=== PATIENT | female | born 1975 ===

== ENCOUNTER 2024-06-02 13:56 | Outpatient (AMB) | payer MEDICARE, MEDICAID, SELFPAY ==
--- OUTSIDE RECORDS SUMMARY | 2024-06-02 14:18 | XMS_ITS | Clinical Summary ---
Author Organization [employer] Address [address] [facility] [address] [place] [address] Care Team Providers Care Protection Engineer Name Role Phone Unavailable Primary Care Provider Unavailabl e Immunizations Name Administration Dates Next Due Pfizer Covid-19 Vaccine 12+ Bivalent 02/10/2022 Social History Tobacco Use Types Packs/Day Years Used Date Smoking Tobacco: Never Assessed Comments Unknown Sex and Gender Information Value Date Recorded Sex Assigned at Female 12/15/2021 10:19 AM EDT Legal Sex Female 10:19 AM EDT Gender Identity Female 12/15/2021 10:19 AM EDT Sexual Orientation Straight 12/15/2021 10 :19 AM EDT Plan of Treatment Health Maintenance Due Date Last Done Comments CT Colonography 1974 Colonoscopy 1974 Colorectal Cancer Screening 1974 Depression Screening 1974 FIT DNA/Cologuard 1974 FIT 1974 FOBT 1974 HIV Screening 1974 SDOH Screening 1974 Sigmoidoscopy 1974 Alcohol/Substance Use Screening 1986 Tobacco Screening 1986 Family Planning (PISQ) 1989 Hepatitis C Screening 1992 Hepatitis B Vaccines (1 of 3 - 19+ 3-dose series) 1993 Pap Smear 09/23/1995 Cervical Cancer Screening 2004 HPV/Cotest 2004 Mammogram 2014 COVID-19 Vaccine ( season) 2023 03/10/2022, 02/10/2022, 02/20/2021, Additional history exists Zoster Vaccines (1 of 2) 2024 DTaP/Tdap/Td Vaccines (3 - Td or Tdap) 04/29/2032 04/29/2022, 07/22/2012 RSV Patients and Patients Aged 60 years or older (1 - 1-dose 75+ series) 2049 Influenza Vaccine Completed 03/27/2024, , 02/19/2021 HIB Vaccines Aged Out No longer eligi ble based on patient's age to complete this topic HPV Vaccines Aged Out No longer eligi ble based on patient's age to complete this topic Hepatitis A Vaccines Aged Out No long er eligible based on patient's age to complete this topic IPV Vaccines Aged Out No longer eligi ble based on patient's age to complete this topic Meningococcal Vaccine Aged Out No adela lorena eligible based on patient's age to complete this topic Pneumococcal Vaccine: Pediatrics (0 to 5 Years) and At-Risk Patients (6 to 49) Years) Aged Out No longer eligible based on patient's age to complete this topic RSV under 20 months Aged Out No longe r eligible based on patient's age to complete this topic Rotavirus Vaccines Aged Out No longer eligible based on patient's age to complete this topic Insurance [facility] MEDICARE * Guarantor: Trevor Ramos Account Type Relation to Patient Date of Phone Billing Address Personal/Family Self [address] [place] [address] * Guarantor: Trevor Ramos Account Type Relation to Patient Date of Phone Billing Address Personal/Family Self [address] [place] [phone] * Guarantor: Trevor Ramos Account Type Relation to Patient Date of Phone Billing Address Personal/Family Self [address] [place] [address]
[2024-06-02 14:24] VITALS: BP 162/89; PULSE 82; O2SAT 98; BMI 23.7
--- NOTE | 2024-06-02 14:24 | A.OFFVIS_ITS ---
Vital Signs 06/02/24 14:24 Height 5 ft 4 in Weight 138 lb BMI 23.7 BP 162/89 H Blood Pressure Location Lt brachial Position Sitting Pulse 82 Pulse Oximetry (%) 98 Oxygen Delivery Method Room Air Intake Visit Reasons: Chronic sacroiliac pain Quantitative Researcher Required: No Allergies No Known Allergies Allergy (Verified 06/02/24 14:25) Medication List - Last Reconciled 06/02/24 by Amada Haynes, TOUR OPERATOR albuterol sulfate 90 mcg/actuation inhalation bupropion HCl 100 mg PO BID fluticasone furoate-vilanterol 100-25 mcg/dose (Breo Ellipta) 1 ea inhalation DAILY gabapentin 300 mg PO TID lamotrigine 100 mg PO BID oxycodone 5 mg PO QID PRN HPI Comments Details: The patient is a 48-year-old female presenting with chronic sacroiliac joint p ain. 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 Various treatments, including sacroiliac joint injections, have provided limited relief. She reports a recent knee injury following a pain- related fall. 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 Pain management has included prescriptions of Percocet, gabapentin, and ibuprofen, but she remains concerned about long-term dependency. She has completed physical therapy without improvement of her symptoms. Continues with home exercise program but pain persists. Previous sacroiliac joint injections have not provided her sustained relief. She also suffering with axial low back pain without radiculopathy. Today she reports the sacroiliac joint pain is more bothersome and she would like to focus on that area 1st. - Onset: Several years ago, following an occupational injury. - Quality: Stabbing, burning pain. - Primary Location: Sacroiliac region. - Radiation: Pain radiates down to legs. - Exacerbating Factors: Physical activity, prolonged standing, certain movements. - Alleviating Factors: Limited temporary relief from injections and medication. - Interference with Function: Affects ability to work, engage in daily activities, and care for her children. - Affect: Pain significantly impacts her psychological wellbeing, increasing frustration and emotional distress. - Analgesia: Current medications include Percocet, gabapentin, ibuprofen, and Trazodone for sleep aid. - Adverse Effects: Concern about potential dependency due to prolonged medication use. - Activities of Daily Living: Pain hinders daily activities, reducing work hours, and impacting self-care routines. - Aberrant Drug Related Behaviors: Patient expresses concern about the risk of medication dependency. Review of Systems Const Details: - Musculoskeletal: Reports chronic pain in sacroiliac joint and back, intermittent pain in shoulders, pain radiating to legs, knee pain, and hand joint pain. - Neurological: Reports hearing loss in the left ear; denies other neurological issues. - General: Reports sleep disturbances; otherwise denies systemic issues such as fever or malaise. Physical Exam Vital Signs: Last Vital Signs Pulse 82 06/02/24 14:24 BP 162/89 H 06/02/24 14:24 Pulse Ox 98 06/02/24 14:24 Oxygen Delivery Method Room Air 06/02/24 14:24 BMI result Body Mass Index 23.7 General: awake, alert, oriented. Answers questions appropriately. Fully engaged in examination. Skin: warm, dry, intact HEENT: Normocephalic. Hearing intact. Cardiac: External chest normal in appearance. Respiratory: No cough, audible wheezing or stridor. Abdomen: without gross distension. MS: No obvious swelling or deformities. Able to stand on bilateral tiptoes and bilateral heels.? Able to transition from sit to stand unassisted. Ambulates with bilaterally normal heel strike and toe off Right SIJ: Tenderness over right PSIS. [place] positive. Thigh thrust positive. SI compression positive. Facet loading positive SLR negative bilaterally Diffuse tenderness over upper middle lower back musculature Neurological: Oriented to person, place, time and situation. Thought process intact. No gait abnormalities appreciated. Psychiatric: Appropriate mood and affect. Good judgment and insight. Assessment & Plan Assessment & Plan (1) Sacroiliac joint dysfunction of right side: Code(s): M53.3 - Sacrococcygeal disorders, not elsewhere classified Category: Medical (2) Lumbar spondylosis: Code(s): M47.816 - Spondylosis without myelopathy or radiculopathy, lumbar region Category: Medical (3) Chronic pain syndrome: Code(s): G89.4 - Chronic pain syndrome Category: Medical (4) Chronic, continuous use of opioids: Code(s): F11.90 - Opioid use, unspecified, uncomplicated Category: Medical (5) Myofascial muscle pain: Comment: Back Code(s): M79.18 - Myalgia, other site Category: Medical Plan Chronic sacroiliac joint pain management will include the consideration for a peripheral nerve stimulation trial with Curonix to potentially disrupt ongoing pain signaling. Insurance authorization will be pursued prior to trial commencement. Non-surgical interventions such as physical therapy and posture correction devices have been recommended for back and associated joint pain relief. Updated strategies for hand osteoarthritis will focus on joint protection and symptomatic relief. The patient is urged to continue self-care while considering the risks associated with prolonged opioid use. We reviewed the chronicity and refractory nature of the patient's sacroiliac p ain and explored peripheral nerve stimulation as a minimally invasive option to alleviate symptoms. I explained the procedure's mechanics, focusing on neural interference with pain pathway transmission, and outlined the benefits against the backdrop of its limited invasiveness compared to SIJ fusion surgery. Procedural risks like bleeding and infection were disclosed. I encouraged consultation with her referring physician to ensure integrated management within her therapeutic regimen. Follow-up will be contingent on patient consent for the stimulation trial, alongside sustained education on non-surgical measures for comprehensive management. Patient will call the office if she would like to proceed with right sacroiliac joint PNS trial with Curonix. She was given a pamphlet for review. Patient was informed and verbally consented to the use of an ambient scribe for clinic note documentation during this visit. Patient Instructions: - Discuss the Curonix peripheral nerve stimulation option with Dr. Willis. - Consider posture-support devices for improved back support. - Continue home exercises and stretching routines. - Monitor pain medications usage. - Reach out for follow-up appointments when ready to proceed with nerve stimulation trial. Coding Level of Care Code New Pt Level 4 (88823) Complex EM visit Add On G2211 Diagnoses Sacroiliac joint dysfunction of right side M53.3 Lumbar spondylosis M47.816 Chronic pain syndrome G89.4 Chronic, continuous use of opioids F11.90 Myofascial muscle pain M79.18
== END 2024-06-02 15:02 | disposition home or self-care (01) ==
LOC: HO.PMC 13:56
PROVIDERS: PCP Registered Nurse; Visit Provider Registered Nurse Emergency
DX: M53.3 Sacrococcygeal disorders, not elsewhere classified (principal); M47.816 Spondylosis without myelopathy or radiculopathy, lumbar region; G89.4 Chronic pain syndrome; Z79.891 Long term (current) use of opiate analgesic; M79.18 Myalgia, other site
CPT/HCPCS: 99204; G2211

== ENCOUNTER → 2024-06-02 13:56 | Outpatient (BNVA) | payer MEDICARE, MEDICAID, SELFPAY | PROVIDERS: PCP Registered Nurse; Visit Provider Registered Nurse Emergency | DX: M53.3 Sacrococcygeal disorders, not elsewhere classified (principal); M47.816 Spondylosis without myelopathy or radiculopathy, lumbar region; M79.18 Myalgia, other site; F11.20 Opioid dependence, uncomplicated; G89.4 Chronic pain syndrome | CPT/HCPCS: 99202 ==